=== PATIENT | female | born 1965 | race Caucasian/White ===

== ENCOUNTER 2018-02-09 10:06 | Emergency (ER) | payer BC, SELFPAY ==
[2018-02-09 10:06] VITALS: BP 156/75; PULSE 71; RESP 12; TEMP 36.2; O2SAT 100; BMI 26.0
--- NOTE | 2018-02-09 11:12 | ED.VIS.GEN ---
History of Present Illness Chief Complaint: Allergic Reaction Informant: Patient Narrative: Patient states that she has been on a prednisone taper prescribed by her doctor for about 2 weeks. This was for poison anais, she was in bushes and weeds, doing yard work, and broke out 2-3 days after that in a very itchy rash that appeared to be poison anais. She states that she has had several visits back to her doctor in urgent care, because of persistent rash and itching although she agrees that the prednisone was helping. She is also using topicals and oral antihistamines. She was there yesterday, and they restarted prednisone taper at 60 mg daily, she has only taken the first day of this, yesterday. She woke up this morning and while in the shower she noticed some muscle weakness in her left lower extremity, she points to her calf as where the problem seemed to be, she denies any significant pain there, no tingling or numbness. She does have a significant amount of poison anais on that calf as well. She is also noticed since she woke up that she felt a little shaky and that her tongue and cheeks on her face felt a little swelled and she was having a little trouble speaking with that. She denies any aphasia. She denies any other focal symptoms or trouble swallowing or trouble breathing. No new medications. - Past Medical History (1) Hypothyroid Status: Chronic Past Medical History - Allergies and Home Meds Allergies/Adverse Reactions: Allergies prednisone Allergy (Verified 02/09/18 10:09) Swelling Home Medications: Home Medications Medication Instructions Recorded levothyroxine 125 mcg tablet 125 mg PO DAILY 10/19/17 Primary Care Physician: Doctor,Your [STAFF PHYSICIAN] - 3-5 Days if not improving Smoking Status: Never smoker Drugs: None Review of Systems All systems negative except as indicated ENT: Reports: - - Tongue and facial swelling, dysarthria. No dysphagia. Musculoskeletal: Reports: - - muscle weakness left leg Physical Exam Vital Signs/Narrative: Vital Signs Temp Pulse Resp BP Pulse Ox 02/09/18 10:06 97.1 F L 71 12 156/75 H 100 General: Well nourished, Well developed, - - Well-appearing, no acute distress, conversive Head: Normocephalic, Atraumatic Eyes: Perrl, EOMI ENT: Moist mucous membranes, No rhinorrhea, - - Tongue is not objectively or asymmetrically, significantly edematous. Patient states that it is abnormal. She is able to close her mouth. No trismus. Posterior oropharynx is visible and clear. No sublingual edema or distention. No intraoral lesions. No significant objective facial edema. No stridor. Neck: Supple, Nontender, No lymphadenopathy, No JVD Cardiovascular: Regular rate, Regular rhythm. Negative for: Tachycardia Respiratory: No distress, CTA bilaterally, Chest nontender Abdomen: Soft, Nontender, Nondistended, Normal bowel sounds Extremities: Nontender, No edema Skin: Rash - Maculopapular and pustular, some in linear distributions, on extremities, consistent with rhus dermatitis. Nontender. No lymphangitis. Neurological: Alert, Oriented x3, Cranial nerves II-XII grossly intact, Normal Strength, Normal Sensation, Normal Gait Psychological: Normal affect Diagnostic/Tx/Re-eval - Medical Decision Making I think this is side effect from the prednisone, especially since she just took another 60 mg yesterday. I told her that this is fairly classic poison anais history, that the rash does take quite a bit of time to go away and if the prednisone is helping the itching, then in my opinion, she has accomplished the goal for the rash. It will probably start to taper in the next week, and as I told her this, she states that it already has started. I do not think she needs to be on this taper, I recommend tapering it down a little more quickly, but since she has been on it for 2 weeks she will need to taper it. I do not recommend taking 60 mg anymore, there is evidence showing that it has no significant advantage over starting a taper at 40. She really wants to taper off of it as soon as possible. I will give her a recommendation for that, I reassured her. She states the symptoms of muscle weakness in her left leg were gone upon walking into the ER. She has a little dysarthria that is only present with certain things that she says, she has no aphasia or any other focal neurologic abnormality. I do not think she is having a stroke from this. We discussed the possibility, and the workup, she does not want a CAT scan or any other tests right now. We did do a blood sugar that she was amenable to, it was 91. She is comfortable with this overall plan and following up as needed. ED Disposition - Plan for ED Patient: Disposition: Home or Assisted Living Chief Complaint: Allergic Reaction Diagnosis: Side effect of medication Instructions: ED Drug React Adverse Other Referrals: Doctor,Your [STAFF PHYSICIAN] - 3-5 Days if not improving Additional Instructions: Today, tomorrow, take 3 pills of your prednisone 10 mg. Wednesday, take 2 pills. Wednesday, Wednesday, Wednesday take one pill each day. Then you may discontinue.
[2018-02-09 11:31] LABS: Bedside Glucose 91 mg/dL (70-110)
[2018-02-09 11:39] VITALS: BP 121/74; PULSE 68; RESP 15; O2SAT 98
== END 2018-02-09 11:39 | disposition home or self-care (01) ==
PROVIDERS: Emergency Provider Emergency Medicine; Family Provider Family Medicine; PCP Family Medicine
DX: L23.7 Allergic contact dermatitis due to plants, except food (principal); E03.9 Hypothyroidism, unspecified
CPT/HCPCS: 82962; 99282

== ENCOUNTER 2020-12-13 08:11 | Outpatient (RCR) | payer BC, SELFPAY ==
[2020-12-11 11:32] VITALS: BMI 27.3
[2020-12-13] MEDS: COVID-19 VACC, MRNA(PFIZER)/PF 30 MCG/0.3 ML SYRINGE IM (14:00)
[2021-01-03] MEDS: COVID-19 VACC, MRNA(PFIZER)/PF 30 MCG/0.3 ML SYRINGE IM (13:55)
== END 2020-12-13 23:59 ==
LOC: IMMUN 08:11
PROVIDERS: PCP Family Medicine; Visit Provider Family Medicine
DX: Z23 Encounter for immunization (principal)
CPT/HCPCS: 0001A; 0002A; 91300

== ENCOUNTER → 2021-07-16 12:54 | Outpatient (CLI) | payer OTHER, SELFPAY ==
--- NOTE | 2021-07-16 13:26 | MRI_ITS ---
STUDY: MRI LEFT KNEE REASON FOR EXAM: Female, 55 years old. Sprain injury TECHNIQUE: Standardized fat and water weighted pulse sequences were obtained in all 3 orthogonal planes. COMPARISON: None. FINDINGS: A small linear undersurface tear is present in the middle one third aspect of the posterior horn of the medial meniscus. Normal anterior horn and body of the medial meniscus. There is diffuse, less than 50% thickness articular cartilage loss of the medial femorotibial compartment. Mild subchondral reactive edematous signal is present at the corner of the medial tibial plateau. Normal medial femoral condyle. Normal medial collateral ligamentous complex (MCL). Normal distal semimembranosus, gracilis and semitendinosus tendons. Normal lateral meniscus. Normal hyaline cartilage of the lateral femorotibial compartment. Normal lateral femoral condyle and tibial plateau. Normal proximal tibiofibular articulation. Normal lateral collateral (fibular) ligament. Normal popliteus tendon. Normal biceps femoris tendon. Normal anterior cruciate ligament (ACL). Normal posterior cruciate ligament (PCL). Normal congruent patellofemoral articulation. Normal hyaline cartilage of the patellofemoral compartment. Normal medial and lateral patellar retinaculum. Normal quadriceps tendon. Normal patellar tendon. Normal Hoffa''s fat pad. Small joint effusion and Hart''s cyst noted. The soft tissues are unremarkable. The otherwise visualized osseous structures are unremarkable. MRI/Lower Ext Joint Only (Routine) IMPRESSION: 1. Small undersurface tear in the posterior horn of medial meniscus Electronically Signed: Todd Solorzano MD at 17:10 EDT , Service support ,
== END ==
PROVIDERS: PCP Family Medicine; Referring Provider Physician Assistant Surgical; Visit Provider Physician Assistant Surgical
DX: S83.8X2A Sprain of other specified parts of left knee, initial encounter (principal); X58.XXXA Exposure to other specified factors, initial encounter; Y93.9 Activity, unspecified; Y92.9 Unspecified place or not applicable; Y99.9 Unspecified external cause status
CPT/HCPCS: 73721

== ENCOUNTER 2021-08-28 14:00 | Outpatient (RCR) | payer OTHER, SELFPAY ==
--- NOTE | 2021-07-28 10:36 | HP.PTEVAL ---
Patient's Visit Information NORIS ALVARADO is a 55 year old F referred to Physical Therapy by CAT Martinez with a diagnosis of Left Posterior Meniscal Teat. Date of Evaluation: 07/28/21 Physical Therapist: Eulalia Fitzgerald DPT - Visit Plan Frequency: 2x /Week Duration: 4 Weeks Plan: Focus on LE and core strength/stabilization- caution back pain-neutral spine- Ultrasound PRN. HEP Given IE: Quad set, SLR, bridge with glut set, seated hamstring stretch in chair, standing TKE - Subjective Patient reports that she was doing yard work about a month- years ago had knee injury- told her cartilage tear- did PT and was okay. But really flared it up doing yard work. By the time she was going inside she could barely move. Went to see Priscilla at [facility]- plans to see Dr. Yassine Campbell if she has to have surgery. MRI which showed a tear but no injection- had a reaction to Prednisone so they didn't want to take the chance. Was on crutches for a week and did not work so she is better- not squatting- feels that she is back to 50-60% back to normal. Wears a sleeve on her knee when she is awake but does not sleep with it on. Sleep: disturbed- side sleeper but has a hard time straightening out the knee. Worst: 01/04 Agg: squatting, standing for long periods of time, hard to get going after sitting for to long. Best: hot tub 2x a day, knee brace, ice, staying off of it. Pain is located along the posterior knee and wrap around the medial side. No radiating pain. Describes the pain as dull and achy- once in awhile she will get a sharp pain if she turns wrong. No N/T in the toes. Feels more stiff- hard to get moving- moves a little easier in the water. 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 She belongs to [employer] and has not been back to full since the pandemic- not consistent at this point. Does have a long history of back no TM but does the ellip. PMHx: back pain, thyroid, HTN. Meds: synthroid, losartin, water pill - Objective Posture: FH, RS- can correct but does not maintain. Gait: antalgic- decreased stance on the left LE- poor heel strike due to decreased ROM. Stairs: asc/desc 8 recip with 1 HR and poor control with descent and uses UE A for propulsion. HR/TR: able with UE A but reports discomfort with TR. SLS: Left: 5 seconds then LOB Right: 20 seconds. Sensation/Reflex: WFL. ROM: 0-120 degrees with pain at end ranges. Strength: Core: fair minus, Hip: 4-/5 throughout, Knee: 4/5 pain with testing, Ankle: 5/5. Flex: HS: severe, Gastroc: severe - Balance/Special Test Scores Lower Extremity Functional Score: 45 - Goals Goal 1:: Patient will be I with HEP and progression Goal Time Frame: 4-6 Weeks Goal 2:: Patient will ambulate >300 feet with a normalized gait pattern Goal Time Frame: 4-6 Weeks Goal 3:: Patient will SLS for 20 seconds without loss of balance Goal Time Frame: 4-6 Weeks Goal 4:: Patient will maintain proper posture t/o tx session to demo increased core s/s Goal Time Frame: 4-6 Weeks Goal 5:: Patient will demo full AROM without pain in the left knee Goal Time Frame: 4-6 Weeks - Rehabilitation Potential Physical Therapy Diagnosis: Patient presents with hypomobility- she has decreased pain free ROM, proprioception, LE and core strength/stabilization, flexibility and muscular endurance leading to poor posture, gait abnormality and increased pain with ADL's. Rehabilitation Potential: Good - Anticipated Interventions Patient/Client Instruction: Educate patient on: Benefits of Fitness Program Therapeutic Exercise to Include: Strength training, Endurance training, Balance training, Agility training, Body mechanics, Postural training, Flexibilty training, Gait and locomotor training, Neuromotor development, Passive ROM, Active ROM, Dynamic Lumbar Stabilization For the Purpose of:: To improve muscle performance and motor function TENS: Yes Cryotherapy (ice pack, ice massage): Yes Thermo therapy (hot pack): Yes Ultrasound (thermal/non thermal): Yes Thank you for the opportunity to evaluate your patient. For Medicare and Medicare HMO plans, please review the plan of care and approve it. It will need to be FAXED BACK to us at [phone] for Medicare purposes. For Medicare only, by signing this I certify the plan of care. Please let me know if there are questions or concerns regarding this plan of care. Physician Signature: Date:
--- NOTE | 2021-08-28 14:38 | HP.PTREVAL ---
CAT Martinez, It has been my pleasure to treat NORIS ALVARADO over the last 10 visits for Possible Left Meniscal Tear. Please see the progress note below for an update on the physical therapy plan of care! Subjective: Getting slowly better. Had a set back with some squatting that flared he rup a few weeks ago so got rid of that and did Ok last week. Feels stiffness but not pain lately. Stiff in am getting out of bed and uses bike to loosen up a little bit. ROM is not full yet. Straightening is not full yet. Sleep is OK. Feels comfortable gettinhg back to [employer] hesitantly. Will see doctor Wednesday as she is going to [place] in end August. Will consider surgery after that if not better. Cannot get down on knees comfortably with grandkids. Will want surgery if not better than this. Objective/Function: LEFS improved by 9 points. Walks I but does not get full L knee extension at heel strike causing limp.. Unable to bend knee fully, still very painful. 0-126 AROM L knee only 6 degrees better than eval. Strength hip is 4/5 adn knee ext 4/5 with some tightness and flexion 4+ without pain. Steps are reciprocal with one rail and feels stiff with bending L knee. overall somewhat improved but not satisfactorily. Pt wishes to go on vacation at end of month and if not better will desire surgery. Plan Plan: Pt to doctor Wednesday and will push end ranges of motion over weekend to see if she can improve ROM. recommend 2x/week for 3-4 weeks until her vacation in therapy to see if we can get her motion back and trial of gym exercises to work toward and I program of strengthening at [employer] to compliment home stretching and ROM. Correlate this plan with doctor on Wednesday and pateint to call after that appt. Balance/Gait/Functional tests - Balance/Special Test Scores Lower Extremity Functional Score: 54 Goals Goal 1:: Patient will be I with HEP and progression Goal Time Frame: 4-6 Weeks Goal Progress: Goal Met, SLR, HS , bridg Goal 2:: Patient will ambulate >300 feet with a normalized gait pattern Goal Time Frame: 4-6 Weeks Goal Progress: Not Progressing Goal 3:: Patient will SLS for 20 seconds without loss of balance Goal Time Frame: 4-6 Weeks Goal Progress: Goal Met Goal 4:: Patient will maintain proper posture t/o tx session to demo increased core s/s Goal Time Frame: 4-6 Weeks Goal Progress: Goal Met Goal 5:: Patient will demo full AROM without pain in the left knee Goal Time Frame: 4-6 Weeks Goal Progress: slow improvement Anticipated Interventions Patient/Client Instruction: Educate patient on: Benefits of Fitness Program Therapeutic Exercise to Include: Strength training, Endurance training, Balance training, Agility training, Body mechanics, Postural training, Flexibilty training, Gait and locomotor training, Neuromotor development, Passive ROM, Active ROM, Dynamic Lumbar Stabilization For the Purpose of:: To improve muscle performance and motor function TENS: Yes Cryotherapy (ice pack, ice massage): Yes Thermo therapy (hot pack): Yes Ultrasound (thermal/non thermal): Yes Please do not hesitate to contact me at [phone] by phone or if you have questions or concerns regarding this new plan of care! Sincerely, Rowdy Flores, DPT, OCS, CSCS
--- NOTE | 2021-10-15 15:04 | HP.PTDCSUM ---
It has been my pleasure to treat NORIS ALVARADO referred by CAT Martinez, with the diagnosis of Possible Left Meniscal Tear for a total of 10 visit(s). Discharge Date: Please see the following information for a summary of their discharge status. Subjective: Getting slowly better. Had a set back with some squatting that flared he rup a few weeks ago so got rid of that and did Ok last week. Feels stiffness but not pain lately. Stiff in am getting out of bed and uses bike to loosen up a little bit. ROM is not full yet. Straightening is not full yet. Sleep is OK. Feels comfortable gettinhg back to [employer] hesitantly. Will see doctor Wednesday as she is going to [place] in end August. Will consider surgery after that if not better. Cannot get down on knees comfortably with grandkids. Will want surgery if not better than this. % Improvement: 75 Objective/Function: LEFS improved by 9 points. Walks I but does not get full L knee extension at heel strike causing limp.. Unable to bend knee fully, still very painful. 0-126 AROM L knee only 6 degrees better than eval. Strength hip is 4/5 adn knee ext 4/5 with some tightness and flexion 4+ without pain. Steps are reciprocal with one rail and feels stiff with bending L knee. overall somewhat improved but not satisfactorily. Pt wishes to go on vacation at end of month and if not better will desire surgery. Goal 1:: Patient will be I with HEP and progression Goal Progress: Goal Met, SLR, HS , ivonneg Goal 2:: Patient will ambulate >300 feet with a normalized gait pattern Goal Progress: Not Progressing Goal 3:: Patient will SLS for 20 seconds without loss of balance Goal Progress: Goal Met Goal 4:: Patient will maintain proper posture t/o tx session to demo increased core s/s Goal Progress: Goal Met Goal 5:: Patient will demo full AROM without pain in the left knee Goal Progress: slow improvement Plan: Pt to doctor Wednesday and will push end ranges of motion over weekend to see if she can improve ROM. recommend 2x/week for 3-4 weeks until her vacation in therapy to see if we can get her motion back and trial of gym exercises to work toward and I program of strengthening at [employer] to compliment home stretching and ROM. Correlate this plan with doctor on Wednesday and pateint to call after that appt. If there are questions or concerns regarding this patient's physical therapy, please feel free to call me at [phone]. Thank you for the referral of this patient. Sincerely, Eulalia Fitzgerald, DPT Balance/Gait/Functional tests - Balance/Special Test Scores Lower Extremity Functional Score: 54
== END 2021-08-28 19:00 | disposition home or self-care (01) ==
LOC: PT 14:00
PROVIDERS: PCP Family Medicine; Referring Provider Physician Assistant Surgical; Visit Provider Physician Assistant Surgical
DX: S83.282D Other tear of lateral meniscus, current injury, left knee, subsequent encounter (principal); X58.XXXD Exposure to other specified factors, subsequent encounter
CPT/HCPCS: 97110; 97162; 97530

== ENCOUNTER 2025-01-31 10:54 | Emergency (ER) | payer OTHER, SELFPAY ==
[2025-01-31 10:54] VITALS: BP 173/110; PULSE 55; RESP 16; TEMP 35.8; O2SAT 100
--- NOTE | 2025-01-31 15:07 | EDS_ITS ---
HPI History of Present Illness HPI Narrative: Patient presents with a laceration to her left index finger that occurred today. Patient states she accidentally cut it on the metal edge of a fan blade. Patient states the bleeding has been persistent. Patient denies any paresthesias or weakness. Patient is unsure of her last tetanus. Patient describes her pain as mild and throbbing. Patient is right-hand dominant. Chief Complaint: Laceration Informant: patient Occured/Mechanism Comment: Cut on the edge of a fan blade Onset/Context/Timing Onset: Today Context: Sudden Onset Timing: Continuous Quality of Pain: Throbbing Location: Left index finger Current Severity: Mild Maximum Severity: Mild Worsened by: Nothing Relieved by: Nothing Associated Symptoms Associated Symptoms: Negative for Parasthesia, Weakness or Loss of Funtion Narrative Tetanus Immunization: Unknown [facility] Medical History (Updated 01/31/25 @ 15:[address] Rowdy Sharma DO) Hypertrophic cardiomyopathy Hypothyroid Home Medications ?Medication ?Instructions ?Recorded ?Last Taken ?Type levothyroxine 125 mcg tablet 125 mg PO DAILY 10/19/17 Unknown History (Synthroid) Allergy/AdvReac Type Severity Reaction Status Date / Time prednisone Allergy Swelling Verified 01/31/25 10:54 Family History Grandmother Breast cancer Surgical History H/O lumpectomy Social History Smoking Status: Never smoker alcohol intake: current alcohol intake frequency: 0-2 drinks per day Alcohol type: beer and wine substance use type: does not use caffeine: Yes what type of physical activity do you participate in: walking frequency: 3-4 times per week duration: 15-30 minutes/day seatbelt use: always do you feel safe at home: Yes additional social history: Sami HERZOG ED Constitutional Constitutional ED: Denies chills or fever(s) Eyes Eyes: Denies blurry vision or change in vision ENT ENT ED: Denies rhinorrhea or sore throat Cardiovascular Cardiovascular: Denies chest pain or palpitations Respiratory/Chest Respiratory/Chest: Denies cough or dyspnea Gastrointestinal Gastrointestinal: Denies nausea or vomiting Genitourinary Genitourinary ED: Denies dysuria or hematuria Musculoskeletal Musculoskeletal: Denies back pain or neck pain Integumentary Denies abscess or rash Neurologic Neurologic: Denies headache(s) or weakness Allergic/Immunologic Allergic/Immunologic ED: Denies mouth swelling or urticaria EXAM Physical Exam Const Vital Signs: 01/31/25 10:54 Temperature 96.4 F L Temperature Source Temporal Pulse Rate 55 L Respiratory Rate 16 Blood Pressure 173/110 H Blood Pressure Mean 131 Pulse Ox 100 Oxygen Delivery Method Room Air Positive well nourished and well developed General Appearance ED: well developed and NAD HEENT Reports moist mucous membranes Neuro oriented x3, CN's II-XII intact bilaterally, moves all extremities, no focal motor deficits and no sensory deficits noted Sensorium / Orientation: alert Motor Exam: strength 5/5 throughout Skin Skin Narrative: There is a 1.7 cm full-thickness linear laceration of the dorsal radial aspect of the PIP joint of the left index finger. There is mild gapping of the wound margins. There is mild bleeding noted. There are no foreign bodies noted. Strength is 5/5 in the MP, PIP, and DIP joints of the left index finger. Sensation was intact to light touch in all digits. Capillary refill was less than 2 seconds in all digits. MDM MDM MDM Narrative Medical decision making narrative: Patient was given a tetanus booster. The wound was cleaned and irrigated with copious amounts of normal saline. The wound was anesthetized with 1% plain lidocaine via digital block. The wound was closed with 3 simple interrupted #4- 0 nylon sutures under sterile technique. Patient tolerated the procedure well. Bacitracin dressing was applied. Patient was instructed to keep wound clean and dry. Patient was instructed to follow-up with her primary care physician in 5 to 7 days. Patient was instructed return if worse in any way. Patient understood and was agreeable with plan. All questions were answered. Procedures Lacerations Left index finger: Length: 1.7 cm Depth: Skin Shape: Linear Prep: Sterile Conditions and Chlorhexadine Laceration repair: Digital block, Irrigated, Lidocaine and Skin sutures Irrigated (ml): 20 Number of Sutures/[place]: 3 Suture Information: Ethilon, Simple and 4-0 Discharge Plan Triage Chief Complaint: Laceration ED Provider: Rowdy Sharma Dx/Rx/DC Orders Clinical Impression: Laceration of left index finger, Elevated blood pressure reading without jennie gnosis of hypertension Instructions: ED Laceration, Hand: All Closures Prescriptions: No Action levothyroxine [Synthroid] 125 mcg tablet 125 mg PO DAILY Primary Care Provider: Paxton Osman Referrals: Paxton Osman MD [Primary Care Provider] - 7 Days for suture removal Print Language: Romanian Disposition Disposition: Home, Self Care Discharge Date/Time: 01/31/25 16:07
[2025-01-31] MEDS: Diphth,Pertuss(Acell),Tet Vac 0.5 ML Vial IM (15:16)
[2025-01-31] MEDS: Lidocaine 1% (20 ml mdv) 20 ML Vial INFILT (15:16)
[2025-01-31 15:18] VITALS: BMI 27.0
== END 2025-01-31 16:07 | disposition home or self-care (01) ==
PROVIDERS: Emergency Provider Emergency Medicine; PCP Family Medicine; Visit Provider Emergency Medicine
DX: S61.211A Laceration without foreign body of left index finger without damage to nail, initial encounter (principal); R03.0 Elevated blood-pressure reading, without diagnosis of hypertension; E03.9 Hypothyroidism, unspecified; Z23 Encounter for immunization; W26.8XXA Contact with other sharp object(s), not elsewhere classified, initial encounter
CPT/HCPCS: 12001; 90715; 96372; 99283